=== PATIENT | female | born 1960 | race African-American/Black ===

== ENCOUNTER 2024-05-04 11:56 | Observation (INO) | payer OTHER ==
[2024-05-04 12:01] VITALS: BMI 26.6
[2024-05-04 12:56] LABS: BASO % 0.1 % (0-2.0); HEMATOCRIT 39.1 % (32.4-45.2); HEMOGLOBIN 12.9 GM/dL (10.7-15.3); MCH 27.5 pg (25.7-33.7); MEAN CELL VOLUME 83.2 fl (80-96); MEAN PLT VOLUME 8.8 fl (7.5-11.1); MONO % 6.9 % (3.8-10.2); PLATELET COUNT 239 10^3/uL (134-434); RDW 13.3 % (11.6-15.6); WHITE BLOOD COUNT 9.9 K/mm3 (4.0-10.0)
[2024-05-04 13:01] LABS: INR 0.96 (0.83-1.09); PROTHROMBIN TIME (PATIENT) 10.9 SEC (9.7-13.0)
[2024-05-04 13:09] LABS: POTASSIUM 3.8 mmol/L (3.5-5.1)
[2024-05-04 13:11] LABS: ALBUMIN 4.3 g/dl (3.4-5.0); CALCIUM 10.2 mg/dL (8.5-10.1)
[2024-05-04 13:13] LABS: BLOOD UREA NITROGEN 18.1 mg/dL (7-18)
[2024-05-04 13:15] LABS: CREATININE 0.9 mg/dL (0.55-1.3)
[2024-05-04 13:16] LABS: TOT PROT 8.2 g/dl (6.4-8.2)
[2024-05-04 13:17] LABS: BILIRUBIN,TOTAL 0.8 mg/dL (0.2-1)
[2024-05-04 17:06] LABS: PH,URINE 6.5 (5.0-8.0); URINE APPEARANCE CLEAR; URINE BILIRUBIN NEGATIVE (NEGATIVE); URINE COLOR YELLOW; URINE GLUCOSE (UA) NEGATIVE (NEGATIVE); URINE KETONE NEGATIVE (NEGATIVE); URINE LEUK ESTERASE NEGATIVE (NEGATIVE); URINE NITRITE NEGATIVE (NEGATIVE); URINE PROTEIN NEGATIVE (NEGATIVE); URINE UROBILINOGEN 0.2 mg/dL (0.2-1.0)
[2024-05-05 06:12] VITALS: TEMP 98.3
[2024-05-05 08:10] LABS: POTASSIUM 4.3 mmol/L (3.5-5.1)
[2024-05-05 08:12] LABS: BLOOD UREA NITROGEN 15.9 mg/dL (7-18); CALCIUM 9.1 mg/dL (8.5-10.1)
[2024-05-05 08:16] LABS: BASO % 0.5 % (0-2.0); CREATININE 0.8 mg/dL (0.55-1.3); EOS % 0.8 % (0-4.5); HEMATOCRIT 36.4 % (32.4-45.2); HEMOGLOBIN 12.1 GM/dL (10.7-15.3); LYMPH % 46.7 % (8-40); MCH 27.7 pg (25.7-33.7); MCHC 33.2 g/dl (32.0-36.0); MEAN CELL VOLUME 83.3 fl (80-96); MONO % 6.9 % (3.8-10.2); NEUT % 45.1 % (42.8-82.8); PLATELET COUNT 216 10^3/uL (134-434); RBC 4.37 M/mm3 (3.60-5.2); WHITE BLOOD COUNT 6.1 K/mm3 (4.0-10.0)
[2024-05-05 08:38] VITALS: RESP 18
[2024-05-05 12:39] VITALS: BP 110/60; PULSE 58
== END 2024-05-05 14:34 | disposition home or self-care (01) ==
LOC: JER 11:56 → JERBED 18:47 → J4S 05-05 03:47
PROVIDERS: ADMIT Internal Medicine; ATTEND Internal Medicine
DX: R20.0 Anesthesia of skin (principal); G43.909 Migraine, unspecified, not intractable, without status migrainosus; M47.892 Other spondylosis, cervical region; M47.894 Other spondylosis, thoracic region
CPT/HCPCS: 36415; 70450-TC; 72125-TC; 72128-TC; 80048; 80053; 80061; 81003; 82550; 82962; 83036; 84484; 85025; 85610; 85730; 86850; 86900; 86901; 93005; 93010; 99285-25; G0378